=== PATIENT | male | born 1950 | race American Indian/Alaskan Native ===

== ENCOUNTER 2021-12-20 07:16 | Outpatient (CLI) | payer MEDICARE ==
--- NOTE | 2021-12-20 09:15 | Cat Scan Report ---
CT ABDOMEN AND PELVIS WITHOUT CONTRAST HISTORY: MICROSCOPIC HEMATURIA COMPARISON: None. TECHNIQUE: Axial CT images were obtained through the abdomen and pelvis without IV contrast. Sagittal and coronal reformatted images. All CT scans at this location are performed using CT dose reduction for ALARA by means of automated exposure control. FINDINGS: CT ABDOMEN: Lung Bases: Advanced emphysematous changes at the lung bases. No mass, infiltrate or effusion. Heart size is at the upper limits of normal. Liver: No significant abnormality. Biliary: No significant abnormality. Spleen: No significant abnormality. Unenlarged. Pancreas: No significant abnormality. Adrenals: No significant abnormality. Kidneys: Both kidneys are normal size, contour and position. There are a few scattered punctate renal calyceal stones in both kidneys. No obvious cystic disease or renal mass on noncontrast CT. The uret ers are normal course and caliber. Lymphatics: No lymphadenopathy. Vasculature: There is mild atherosclerotic disease in the distal aorta and iliac arteries without acu te abnormality. The venous structures are unremarkable on noncontrast exam. Bowel/Peritoneum: No evidence for bowel obstruction or focal inflammation. Mild diverticulosis of the colon is noted. The appendix is not confidently identified. No evidence for ascites, fluid collectio n or free air. CT PELVIS: : Prostatomegaly measures 5.5 cm in diameter. There is an approximate 1 cm hypoechoic nodule in the superior prostate gland on the left side. The bladder is mostly empty but unremarkable. Osseous Structures: There is borderline to mild osteopenia. Mild to moderate degenerative changes in the lower lumbar spine. No suspicious bony lesion or fracture is appreciated. Additional Findings: Small umbilical hernia containing fat is noted. IMPRESSION: Bilateral nonobstructing nephrolithiasis as described. Prostatomegaly. 1 cm hypodense dense nodule in the superior left prostate gland. No acute process identified. Emphysema. Signer Name: Frandy Castro Jr, MD Signed: 12/20/2021 9:11 AM Workstation Name: [id number]
== END 2021-12-20 07:17 | disposition home or self-care (01) ==
LOC: CT 07:16
PROVIDERS: ATTEND Urology
DX: N20.0 Calculus of kidney (principal); J43.9 Emphysema, unspecified; N40.0 Benign prostatic hyperplasia without lower urinary tract symptoms; M85.88 Other specified disorders of bone density and structure, other site; M51.36 Other intervertebral disc degeneration, lumbar region; K42.9 Umbilical hernia without obstruction or gangrene; I70.0 Atherosclerosis of aorta; K57.30 Diverticulosis of large intestine without perforation or abscess without bleeding
CPT/HCPCS: 74176